=== PATIENT | female | born 1980 | race Caucasian/White ===

== ENCOUNTER → 2017-05-12 | Outpatient (CLI) | payer BC ==
[~2017-05-12] MED LIST: MOTRIN 600600 MG/TAB PO; NO HOME MEDICATIONS; NORCO 325 MG-51 TAB PO; PERCOCET 325 MG1 TA2 PO; PHENERGAN 25 TA25 MG PO; PRENATAL VITA1 UDTAB PO; PRENATAL1 TA1 PO
== END ==
LOC: COL.RAD 05-05 09:15
DX: S73.101A Unspecified sprain of right hip, initial encounter (principal); M89.38 Hypertrophy of bone, other site
CPT/HCPCS: A9585; J3301; Q9967

== ENCOUNTER → 2017-05-21 | Outpatient (CLI) | payer BC | LOC: COL.RAD 11:00 | DX: S73.101A Unspecified sprain of right hip, initial encounter (principal) | CPT/HCPCS: J3301; Q9967 ==

== ENCOUNTER → 2019-04-10 | Outpatient (CLI) | payer BC | LOC: COL.RAD 09:45 | DX: R10.2 Pelvic and perineal pain (principal); R93.89 Abnormal findings on diagnostic imaging of other specified body structures ==

== ENCOUNTER → 2020-05-27 | Outpatient (CLI) | payer BC | LOC: MC.RAD 07:35 | DX: N63.20 Unspecified lump in the left breast, unspecified quadrant (principal) ==

== ENCOUNTER → 2022-07-01 | Outpatient (CLI) | payer BC | LOC: COL.RAD 09:15 | DX: E04.9 Nontoxic goiter, unspecified (principal) ==